=== PATIENT | male | born 1930 | race Caucasian/White ===

== ENCOUNTER 2017-04-28 18:00 | Emergency (ER) | payer BC, MEDICARE ==
[~2017-04-28] VITALS: Ht 188 cm; Wt 72.6 kg
[2017-04-28] MEDS ORDERED: Sodium Chloride 500ML 500 ML IV ONE (18:20)
[2017-04-28 18:57] VITALS: BP 119/73
[2017-04-28 19:11] LABS: BASOPHILS % (AUTO) 0.9 % (0.0-2.0); EOSINOPHILS % (AUTO) 1.7 % (0.0-3.0); LYMPHOCYTES % (AUTO) 28.3 % (20.0-45.0); MEAN CORPUSCULAR HEMOGLOBIN 31.3 PG (27.0-31.0); MEAN CORPUSCULAR HGB CONC 32.9 G/DL (32.0-36.0); MEAN CORPUSCULAR VOLUME 95 FL (80-99); MEAN PLATELET VOLUME 7.2 FL (6.5-10.1); MONOCYTES % (AUTO) 8.7 % (1.0-10.0); NEUTROPHILS % (AUTO) 60.6 % (45.0-75.0); PLATELET COUNT 199 K/UL (150-450); RED BLOOD COUNT 3.87 M/UL (4.70-6.10); RED CELL DISTRIBUTION WIDTH 12.2 % (11.6-14.8); WHITE BLOOD COUNT 5.9 K/UL (4.8-10.8)
[2017-04-28 19:12] LABS: ANION GAP 2 mmol/L (5-15); CALCIUM 8.4 MG/DL (8.5-10.1); CARBON DIOXIDE 32 MMOL/L (21-32); CHLORIDE 106 MMOL/L (98-107); CREATININE 1.3 MG/DL (0.55-1.30); POTASSIUM 4.6 MMOL/L (3.5-5.1); SODIUM 140 MMOL/L (136-145)
[2017-04-28 19:27] LABS: ALANINE AMINOTRANSFERASE 43 U/L (12-78); ASPARTATE AMINO TRANSFERASE 29 U/L (15-37); TOTAL PROTEIN 6.3 G/DL (6.4-8.2)
[2017-04-28 19:30] VITALS: BP 124/60
[2017-04-28 20:05] VITALS: BP 124/60
--- NOTE | 2017-04-28 22:26 | Emergency Room Report ---
History of Present Illness General Chief Complaint: Syncope Source: Patient, Significant Other Present Illness HPI 87-year-old male presents ED for evaluation. Patient brought by EMS from doctor 's office. Patient had a near syncopal episode at office. Per EMS BP was low in the field. Given IV fluids. In triage BP is improved. Patient states he feels better. States she has history of labile blood pressure and his blood pressure does go up and down erratically. Denies headaches or dizziness. Denies fevers or chills. Denies chest pain or shortness of breath. No other aggravating relieving factors. Denies any other associated symptoms Allergies: Coded Allergies: No Known Allergies (Unverified , 04/28/17) Patient History Past Medical History: HTN Past Surgical History: none Pertinent Family History: none Social History: Denies: smoking, alcohol use, drug use Immunizations: UTD Reviewed Nursing Documentation: PMH: Agreed, PSxH: Agreed Review of Systems All Other Systems: negative except mentioned in HPI Physical Exam Vital Signs Date Time Temp Pulse Resp B/P (MAP) Pulse Ox O2 Delivery O2 Flow Rate FiO2 04/28/17 17:59 97.0 101 18 119/73 94 Room Air Sp02 EP Interpretation: reviewed, normal General Appearance: no apparent distress, alert, GCS 15, non-toxic Head: normocephalic, atraumatic Eyes: bilateral eye normal inspection, bilateral eye PERRL ENT: hearing grossly normal, normal pharynx, no angioedema, normal voice Neck: full range of motion, supple/symm/no masses Respiratory: chest non-tender, lungs clear, normal breath sounds, speaking full sentences Cardiovascular #1: regular rate, rhythm, no edema Cardiovascular #2: 2+ carotid (R), 2+ carotid (L), 2+ radial (R), 2+ radial (L) , 2+ dorsalis pedis (R), 2+ dorsalis pedis (L) Gastrointestinal: normal bowel sounds, non tender, soft, non-distended, no guarding, no rebound Rectal: deferred Genitourinary: normal inspection, no CVA tenderness Musculoskeletal: back normal, gait/station normal, normal range of motion, non- tender Neurologic: alert, oriented x3, responsive, motor strength/tone normal, sensory intact, speech normal Psychiatric: judgement/insight normal, memory normal, mood/affect normal, no suicidal/homicidal ideation Reflexes: 3+ bicep (R), 3+ bicep (L), 3+ tricep (R), 3+ tricep (L), 3+ knee (R) , 3+ knee (L) Skin: normal color, no rash, warm/dry, well hydrated Lymphatic: no adenopathy Medical Decision Making Diagnostic Impression: Primary Impression: Near syncope ER Course Hospital Course 87-year-old M presents ED s/p near syncopal episode. hypotensive Differential diagnoses include: UT/unstable angina, arrythmia, dehydration Clinical course Patient placed on stretcher. on heel sander. After initial history and physical I ordered labs, EKG, chest x-ray, IVFs labs reviewed- no leukocytosis, hemoglobin/hematocrit ok, electrolytes okay, troponins 0.011 EKG-sinus bradycardia 1st degree av block Chest x-ray- no acute process Patient states he feels better wishes to be discharged. Blood pressure improved. Given troponins of 0.011 I believe patient should at least have a repeat troponin in 4 hours. Patient declines. States he's had multiple episodes of near syncope like this over the years. Has an appointment with his PMD tomorrow Understands the risks of leaving. Patient has competency to make her own decisions. Signed AMA form. given copies of labs, EKG I. I feel this is a highly complex case requiring extensive working including EKG/Rhythm strip, Xray/CT/US, Blood/urine lab work, repeat exams while in ED, and administration of strong opiates/narcotics for pain control, admission to hospital or close patient follow up. Diagnosis - near syncope Patient leaves AMA Labs Test 04/28/17 18:34 White Blood Count 5.9 K/UL (4.8-10.8) Red Blood Count 3.87 M/UL (4.70-6.10) Hemoglobin 12.1 G/DL (14.2-18.0) Hematocrit 36.8 % (42.0-52.0) Mean Corpuscular Volume 95 FL (80-99) Mean Corpuscular Hemoglobin 31.3 PG (27.0-31.0) Mean Corpuscular Hemoglobin Concent 32.9 G/DL (32.0-36.0) Red Cell Distribution Width 12.2 % (11.6-14.8) Platelet Count 199 K/UL (150-450) Mean Platelet Volume 7.2 FL (6.5-10.1) Neutrophils (%) (Auto) 60.6 % (45.0-75.0) Lymphocytes (%) (Auto) 28.3 % (20.0-45.0) Monocytes (%) (Auto) 8.7 % (1.0-10.0) Eosinophils (%) (Auto) 1.7 % (0.0-3.0) Basophils (%) (Auto) 0.9 % (0.0-2.0) Sodium Level 140 MMOL/L (136-145) Potassium Level 4.6 MMOL/L (3.5-5.1) Chloride Level 106 MMOL/L (98-107) Carbon Dioxide Level 32 MMOL/L (21-32) Anion Gap 2 mmol/L (5-15) Blood Urea Nitrogen 37 mg/dL (7-18) Creatinine 1.3 MG/DL (0.55-1.30) Estimat Glomerular Filtration Rate mL/min (>60) Glucose Level 115 MG/DL (74-106) Calcium Level 8.4 MG/DL (8.5-10.1) Total Bilirubin 0.2 MG/DL (0.2-1.0) Aspartate Amino Transf (AST/SGOT) 29 U/L (15-37) Alanine Aminotransferase (ALT/SGPT) 43 U/L (12-78) Alkaline Phosphatase 53 U/L (46-116) Total Creatine Kinase 74 U/L (26-308) Creatine Kinase MB 5.0 NG/ML (0.0-3.6) Creatine Kinase MB Relative Index 6.7 Troponin I 0.011 ng/mL (0.000-0.056) Pro-B-Type Natriuretic Peptide 872 pg/mL (0-125) Total Protein 6.3 G/DL (6.4-8.2) Albumin 3.2 G/DL (3.4-5.0) Globulin 3.1 g/dL Albumin/Globulin Ratio 1.0 (1.0-2.7) EKG Diagnostic Results Rate: bradycardiac Rhythm: other - 1st degree av block ST Segments: no acute changes ASA given to the pt in ED: No Rhythm Strip Diag. Results EP Interpretation: yes Rhythm: NSR, no PVC's, no ectopy Chest X-Ray Diagnostic Results Chest X-Ray Diagnostic Results : Chest X-Ray Ordered: Yes # of Views/Limited/Complete: 1 View Indication: Other - syncope Interpretation: no consolidation, no effusion, no pneumothorax Impression: No acute disease Electronically Signed by: Electronically signed by Roni Pringle MD Last Vital Signs Date Time Temp Pulse Resp B/P (MAP) Pulse Ox O2 Delivery O2 Flow Rate FiO2 04/28/17 20:05 50 14 124/60 100 Room Air 04/28/17 18:57 97.0 Status: improved Disposition: AGAINST MEDICAL ADVICE Condition: Stable Referrals: NON PHYSICIAN (PCP) Patient Instructions: Dehydration, Adult, [id number] RONI PRINGLE M.D. Apr 28, 2017 22:26
--- NOTE | 2017-04-29 09:22 | Diagnostic Imaging Report ---
Indication: Reason For Exam: SYNCOPE Technique: One view of the chest Comparison: none Findings: No acute infiltrates, effusions, or congestion. Tortuous calcified aorta. Normal heart size. Upper mediastinum unremarkable. Impression: No acute process.
--- NOTE | 2017-05-01 14:42 | Cardiology Report ---
APPROVED REPORT EKG Measurement Heart [id number] Sinus bradycardia with 1st degree AV block Nonspecific intraventricular block Abnormal ECG
== END 2017-04-28 20:05 | disposition left against medical advice (07) ==
LOC: EDBD 18:00 → EMR 18:15
DX: R55 Syncope and collapse (principal); I10 Essential (primary) hypertension
CPT/HCPCS: 36415; 71010; 80053; 82550; 82553; 83880; 84484; 85025; 93005; 96360; 99284